=== PATIENT | female | born 1945 | race Caucasian/White ===

== ENCOUNTER 2016-09-21 10:55 | Emergency (ER) | payer MEDICARE, BC ==
[2016-09-21] MEDS ORDERED: Aspirin 81 MG Tab.Chew PO ONE (11:01)
[2016-09-21 11:29] VITALS: BP 124/72
[2016-09-21 11:29] LABS: CHLORIDE,CL 102 mEq/L (98-106); SODIUM,NA 140 mEq/L (136-145)
--- NOTE | 2016-09-21 13:38 | EDM.PDOC ---
ED HISTORY OF PRESENT ILLNESS - General Chief Complaint: Chest Pain Stated Complaint: CP Time Seen by Provider: 09/21/16 11:29 Source of Information: Reports: Patient History Limitations: Reports: No limitations - History of Present Illness INITIAL COMMENTS - FREE TEXT/NARRATIVE: Diandra is a 71 yo female who presents to the the ER via private vehicle, driven by a friend, with concerns of some chest discomfort. She states yesterday afternoon she started having bilateral neck and shoulder pain. States it really never worsened in regards to discomfort but last night around 10 oclock she felt some heaviness in her chest. She states she was able to get some rest in certain positions and didn't feel it was anything serious. States upone waking up this morning the pain was still present and after talking to her friend she thought she better come in to make sure it wasn't her heart. Timing/Duration: Reports: Improving Severity: mild Location, General: Reports: neck, chest Quality: Reports: Ache, Pressure, Sharp - Related Data Allergies/ADRs: Allergies Allergy/AdvReac Type Severity Reaction Status Date / Time mold Allergy Other Verified 09/21/16 11:06 pollen extracts Allergy Other Verified 09/21/16 11:06 dust Allergy Other Uncoded 09/21/16 11:06 pet dander Allergy Other Uncoded 09/21/16 11:06 Home Meds: Home Meds Aspirin [Ecotrin] 81 mg PO DAILY 12/07/15 [History] Cholecalciferol (Vitamin D3) [Vitamin D3] 5,000 unit PO DAILY 12/07/15 [History] Hydrochlorothiazide 25 mg PO DAILY 12/07/15 [History] Loratadine [Claritin] 10 mg PO DAILY 12/07/15 [History] Metoprolol Tartrate 25 mg PO BID 12/07/15 [History] Multivitamin [Multi-Vitamin Daily] 1 tab PO DAILY 12/07/15 [History] SUMAtriptan Succinate [Imitrex] 100 mg PO ASDIRECTED PRN 12/07/15 [History] Escitalopram [Lexapro] 20 mg PO DAILY 04/04/16 [History] Acetaminophen [Tylenol] 325 mg PO BID 09/21/16 [History] Biotin 1 mg PO DAILY 09/21/16 [History] Turmeric Root Extract [Turmeric] 1 cap PO DAILY 09/21/16 [History] Past Medical History Cardiovascular History: Reports: High cholesterol, Hypertension Gastrointestinal History: Reports: Bowel obstruction Other Gastrointestinal History: Patient had sigmoidectomy with temporary ostomy. Genitourinary History: Reports: Renal calculus Musculoskeletal History: Reports: Arthritis Other Musculoskeletal History: Carpal tunnel syndrome Neurological History: Reports: Migraines Psychiatric History: Reports: Depression - Past Surgical History Respiratory Surgical History: Reports: None GI Surgical History: Reports: Other (see below) Other GI Surgeries/Procedures: Sigmoidectomy/bowel resection with temporary ileostomy. Female Surgical History: Reports: Hysterectomy, Other (see below) Other Female Surgeries/Procedures: Hx of kidney stone. Musculoskeletal Surgical History: Reports: Arthroscopic knee Social & Family History - Family History Family Medical History: Noncontributory - Tobacco Use Smoking Status *Q: Former Smoker Years of Tobacco use: 20 Used Tobacco, but Quit: Yes Month Tobacco Last Used: quit 25 years ago Second Hand Smoke Exposure: No - Caffeine Use Caffeine Use: Reports: Coffee - Recreational Drug Use Recreational Drug Use: No - Living Situation & Occupation Living situation: Reports: single, other (lives alone 3 cats) Occupation: retired ED ROS GENERAL - Review of Systems Review Of Systems: See Below Constitutional: Reports: no symptoms. Denies: fever, chills HEENT: Reports: No symptoms Respiratory: Reports: Cough. Denies: Shortness of Breath, Wheezing, Pleuritic Chest Pain Cardiovascular: Reports: Chest pain. Denies: Blood pressure problem, Lightheadedness, Palpitations GI/Abdominal: Reports: No symptoms, Other (recent abdominal surgery this year for colectomy). Denies: Abdominal pain : Reports: no symptoms Musculoskeletal: Reports: neck pain, shoulder pain Skin: Reports: no symptoms Neurological: Reports: No Symptoms Psychiatric: Reports: No symptoms ED EXAM, GENERAL - Physical Exam Exam: See Below Exam Limited By: No limitations General Appearance: alert, no apparent distress Ears: normal external exam, normal canal, hearing grossly normal, normal TMs Nose: normal inspection, normal mucosa Throat/Mouth: Normal inspection, Normal lips, Normal teeth, Normal gums, Normal oropharynx, Normal voice, No airway compromise Head: atraumatic, normocephalic Respiratory/Chest: no respiratory distress, lungs clear, normal breath sounds, no accessory muscle use Cardiovascular: normal peripheral pulses, regular rate, rhythm, no edema, no murmur GI/Abdominal: normal bowel sounds, soft, no organomegaly, no distention, no mass , tender (right upper quadrant/epigastric), other (negative welch's sign) Back Exam: normal inspection Extremities: normal inspection Neurological: alert, oriented, normal cognition, no motor/sensory deficits Psychiatric: normal affect, normal mood Skin Exam: Warm, Dry, Intact, Normal color, No rash EKG INTERPRETATION EKG Date: 09/21/16 Rhythm: NSR Comparison: NA - no prior EKG Course - Vital Signs Last Recorded V/S: Last Vital Signs Temp 98.7 F 09/21/16 11:13 Pulse 71 09/21/16 11:13 Resp 20 09/21/16 11:13 BP 124/72 09/21/16 11:13 Pulse Ox 95 09/21/16 11:13 - Orders/Labs/Meds Orders: Active Orders 24 hr Category Date Time Status Cardiac Monitoring [RC] . DIRECTED Care 09/21/16 11:01 Active Chest 2V [CR] Stat Exams 09/21/16 11:01 Taken Gallbladder [Abdomen Ltd] [US] Stat Exams 09/21/16 11:45 Taken Labs: Laboratory Tests 09/21/16 09/21/16 09/21/16 Range/Units 11:10 11:10 11:10 WBC 10.7 H (5.0-10.0) 10^3/uL RBC 4.72 (4.00-5.50) 10^6/uL Hgb 12.6 (12.0-16.0) g/dL Hct 38.7 (37.0-47.0) % MCV 82.0 (82.0-94.0) fL MCH 26.7 L (27.0-32.0) pg MCHC 32.6 L (33.0-38.0) g/dL RDW Coeff of Stephanie 13.6 (11.0-15.0) % Plt Count 392 (150-400) 10^3/uL Neut % (Auto) 56.9 (35-85) % Lymph % (Auto) 24.9 (10-55) % [place] % (Auto) 15.9 (0-16) % Eos % (Auto) 1.9 (0-5) % Baso % (Auto) 0.4 (0-3) % Neut # (Auto) 6.11 (1.80-7.00) 10^3/uL Lymph # (Auto) 2.67 (1.00-4.80) 10^3/uL [place] # (Auto) 1.71 H (0.00-0.80) 10^3/uL Eos # (Auto) 0.20 (0.00-0.45) 10^3/uL Baso # (Auto) 0.04 10^3/uL PT 12.0 (9.7-12.3) SEC INR 1.11 (0.92-1.18) APTT 26.0 (20.0-45.0) SEC Sodium 140 (136-145) mEq/L Potassium 3.7 D (3.5-5.0) mEq/L Chloride 102 (98-106) mEq/L Carbon Dioxide 28 (21-32) mmol/L BUN 17 D (7-18) mg/dL Creatinine 1.3 H (0.6-1.0) mg/dL Est Cr Clr Drug Dosing 34.77 mL/min Estimated GFR (MDRD) 40 L (>=60) mL/min Glucose 100 H (75-99) mg/dL Calcium 9.2 (8.4-10.1) mg/dL Total Bilirubin (0.0-1.0) mg/dL Direct Bilirubin (0.0-0.3) mg/dL Indirect Bilirubin mg/dL AST (15-37) U/L ALT (12-78) U/L Alkaline Phosphatase (46-116) U/L Lactate Dehydrogenase 157 (100-190) U/L Creatine Kinase 31 (21-215) U/L Troponin I < 0.017 (0.00-0.06) ng/mL Total Protein (6.4-8.2) g/dL Albumin (3.4-5.0) g/dL Amylase (25-115) U/L 09/21/16 09/21/16 Range/Units 11:10 11:15 WBC (5.0-10.0) 10^3/uL RBC (4.00-5.50) 10^6/uL Hgb (12.0-16.0) g/dL Hct (37.0-47.0) % MCV (82.0-94.0) fL MCH (27.0-32.0) pg MCHC (33.0-38.0) g/dL RDW Coeff of Stephanie (11.0-15.0) % Plt Count (150-400) 10^3/uL Neut % (Auto) (35-85) % Lymph % (Auto) (10-55) % [place] % (Auto) (0-16) % Eos % (Auto) (0-5) % Baso % (Auto) (0-3) % Neut # (Auto) (1.80-7.00) 10^3/uL Lymph # (Auto) (1.00-4.80) 10^3/uL [place] # (Auto) (0.00-0.80) 10^3/uL Eos # (Auto) (0.00-0.45) 10^3/uL Baso # (Auto) 10^3/uL PT (9.7-12.3) SEC INR (0.92-1.18) APTT (20.0-45.0) SEC Sodium (136-145) mEq/L Potassium (3.5-5.0) mEq/L Chloride (98-106) mEq/L Carbon Dioxide (21-32) mmol/L BUN (7-18) mg/dL Creatinine (0.6-1.0) mg/dL Est Cr Clr Drug Dosing mL/min Estimated GFR (MDRD) (>=60) mL/min Glucose (75-99) mg/dL Calcium (8.4-10.1) mg/dL Total Bilirubin 0.5 (0.0-1.0) mg/dL Direct Bilirubin 0.1 (0.0-0.3) mg/dL Indirect Bilirubin 0.4 mg/dL AST 17 (15-37) U/L ALT 15 (12-78) U/L Alkaline Phosphatase 68 (46-116) U/L Lactate Dehydrogenase (100-190) U/L Creatine Kinase (21-215) U/L Troponin I (0.00-0.06) ng/mL Total Protein 7.5 (6.4-8.2) g/dL Albumin 3.5 (3.4-5.0) g/dL Amylase 39 (25-115) U/L Meds: Medications Discontinued Medications Generic Name Dose Route Start Last Admin Trade Name Freq PRN Reason Stop Dose Admin Aspirin 324 mg 09/21/16 11:01 09/21/16 11:09 Aspirin PO 09/21/16 11:02 324 mg ONETIME ONE Administration Departure - Departure Time of Disposition: 13:38 Disposition: Home, Self-Care 01 Clinical Impression: Atypical chest pain Instructions: Nonspecific Chest Pain, [id number] Referrals: Louann Stewart PROGRAM DIR [Primary Care Provider] - Forms: ED Department Discharge Additional Instructions: 1) Cardiac workup was negative today. 2) Ultrasound of right upper abdomen was negative as well, showed no sign of gallbladder etiology. 3) Recommend follow up with primary provider in 1 week for recheck. 4) If pain worsens or any concerns at all, recommend returning to ER. - Problem List & Annotations (1) Atypical chest pain SNOMED Code(s): 714896368 Code(s): R07.89 - OTHER CHEST PAIN Status: Acute Current Visit: Yes - Problem List Review Problem List Initiated/Reviewed/Updated: Yes - My Orders Last 24 Hours: My Active Orders 09/21/16 11:01 Cardiac Monitoring [RC] . DIRECTED Chest 2V [CR] Stat 09/21/16 11:45 Gallbladder [Abdomen Ltd] [US] Stat - Assessment/Plan Last 24 Hours: My Active Orders 09/21/16 11:01 Cardiac Monitoring [RC] . DIRECTED Chest 2V [CR] Stat 09/21/16 11:45 Gallbladder [Abdomen Ltd] [US] Stat Plan: Laboratory, EKG, chest x-ray and RUQ ultrsound was negative today. No definitive cause of chest discomfort. Recommend following up with primary provider in 1 week. Encourage returning to ER sooner if any concerns.
== END 2016-09-21 13:30 | disposition home or self-care (01) ==
LOC: CC.ED 10:55
DX: R07.89 Other chest pain (principal); E78.00 Pure hypercholesterolemia, unspecified; I10 Essential (primary) hypertension; M19.90 Unspecified osteoarthritis, unspecified site; F32.9 Major depressive disorder, single episode, unspecified; Z91.09 Other allergy status, other than to drugs and biological substances; Z79.899 Other long term (current) drug therapy; Z90.710 Acquired absence of both cervix and uterus; Z87.891 Personal history of nicotine dependence
CPT/HCPCS: 36415; 71020; 76705; 80048; 80076; 82150; 82550; 83615; 84484; 85025; 85610; 85730; 93005; 99285; A9270; 93010

== ENCOUNTER 2016-12-06 06:08 | Inpatient (IN) | payer MEDICARE, BC ==
[2016-12-06] MEDS ORDERED: Temazepam 15 MG Cap PO PRN (16:08)
[2016-12-06] MEDS ORDERED: Ondansetron 4 MG Tab.DIS PO PRN (16:08)
[2016-12-06] MEDS ORDERED: Ondansetron 4 MG/2 ML SDV IV PRN (16:08)
[2016-12-06] MEDS ORDERED: Sodium Chloride 0.9% 10 ML Syringe FLUSH PRN (16:08)
[2016-12-06] MEDS ORDERED: Lactated Ringers 1,000 ML IV SCH (16:15)
[2016-12-06 16:42] LABS: CHLORIDE,CL 91 mEq/L (98-106); SODIUM,NA 129 mEq/L (136-145)
[2016-12-06] MEDS ORDERED: Sodium Chloride 0.9% 1,000 ML IV SCH (17:30)
[2016-12-06] MEDS: Levofloxacin/Dextrose 5%-Water 500 MG in Premix Bag 1 BAG IV SCH (17:31)
[2016-12-06] MEDS: Acetaminophen 325 MG Tab PO PRN (18:47)
[2016-12-06] MEDS: Metoprolol Tartrate 25 MG Tab PO SCH (19:43)
[2016-12-06] MEDS ORDERED: Enoxaparin 80 MG/0.8 ML Syringe SUBCUT ONE (20:33)
[2016-12-06] MEDS ORDERED: Acetaminophen 325 MG Tab PO PRN (20:34)
[2016-12-06] MEDS ORDERED: Metoprolol Tartrate 25 MG Tab PO SCH (21:00)
[2016-12-06] MEDS ORDERED: Enoxaparin 40 MG/0.4 ML Syringe ONE (21:11)
[2016-12-06] MEDS ORDERED: Enoxaparin 30 MG/0.3 ML Syringe ONE (21:11)
[2016-12-06] MEDS: Sodium Chloride 0.9% 1,000 ML IV SCH (22:57)
[2016-12-07] MEDS: Acetaminophen 325 MG Tab PO PRN ×2 (01:43→15:41)
[2016-12-07] MEDS: Sodium Chloride 0.9% 1,000 ML IV SCH ×2 (06:34→14:36)
[2016-12-07] MEDS: Citalopram 10 MG Tab PO SCH (07:26)
[2016-12-07] MEDS: Hydrochlorothiazide 25 MG Tab PO SCH (07:26)
[2016-12-07] MEDS: Aspirin 81 MG Tab.EC PO SCH (07:26)
[2016-12-07] MEDS: Metoprolol Tartrate 25 MG Tab PO SCH ×2 (07:26→20:08)
[2016-12-07] MEDS ORDERED: Enoxaparin 80 MG/0.8 ML Syringe SUBCUT ONE (11:03)
[2016-12-07] MEDS: Pantoprazole 40 MG Vial IVPUSH SCH (11:09)
[2016-12-07] MEDS: Levofloxacin/Dextrose 5%-Water 500 MG in Premix Bag 1 BAG IV SCH (17:05)
--- NOTE | 2016-12-07 18:23 | PCM.PN ---
- General Info Date of Service: 12/07/16 Functional Status: Reports: tolerating diet. Denies: pain controlled (Does not have much pain with rest but increases left chest wall pain and shoulder pain with any movement or with deep inspiration), ambulating - Review of Systems General: Reports: Fever, Weakness, Fatigue, Malaise HEENT: Denies: ear pain, sinus congestion, sore throat Pulmonary: Reports: shortness of breath, pleuritic chest pain, cough. Denies: wheezing Cardiovascular: Reports: Chest Pain. Denies: Edema, Lightheadedness Gastrointestinal: Denies: Abdominal pain, Diarrhea, Nausea, Vomiting Genitourinary: Reports: no symptoms Musculoskeletal: Reports: shoulder pain Skin: Reports: no symptoms Neurological: Reports: No Symptoms Psychiatric: Reports: no symptoms - Patient Data Vitals - most recent: Last Vital Signs Temp 99.6 F 12/07/16 16:00 Pulse 109 H 12/07/16 16:00 Resp 20 12/07/16 16:00 BP 128/71 12/07/16 16:00 Pulse Ox 95 12/07/16 16:00 Weight - most recent: 195 lb 8 oz I&O - last 24 hours: Intake & Output 12/07/16 12/07/16 12/07/16 06:59 14:59 22:59 Intake Total 1252 3922 Output Total 150 Balance 1102 3922 Lab Results last 24 hrs: Laboratory Results - last 24 hr 12/06/16 12/07/16 12/07/16 Range/Units 20:20 07:00 07:05 WBC 15.6 H (5.0-10.0) 10^3/uL RBC 3.85 L (4.00-5.50) 10^6/uL Hgb 10.2 L (12.0-16.0) g/dL Hct 31.3 L (37.0-47.0) % MCV 81.3 L (82.0-94.0) fL MCH 26.5 L (27.0-32.0) pg MCHC 32.6 L (33.0-38.0) g/dL RDW Coeff of Stephanie 14.9 (11.0-15.0) % Plt Count 354 (150-400) 10^3/uL Add Manual Diff Yes Neutrophils % (Manual) 64 (35-85) % Band Neutrophils % 2 (0-5) % Lymphocytes % (Manual) 21 (21-55) % Monocytes % (Manual) 12 (2-12) % Eosinophils % (Manual) 1 (0-5) % Absolute Neutrophils 10.30 H (1.80-7.00) 10^3/uL Lymphocytes # (Manual) 3.28 (1.00-4.80) 10^3/uL Monocytes # (Manual) 1.87 H (0.00-0.80) 10^3/uL Eosinophils # (Manual) 0.16 (0.00-0.45) 10^3/uL Sodium 131 L (136-145) mEq/L Potassium 3.7 (3.5-5.0) mEq/L Chloride 96 L (98-106) mEq/L Carbon Dioxide 27 (21-32) mmol/L BUN 31 H (7-18) mg/dL Creatinine 1.6 H (0.6-1.0) mg/dL Est Cr Clr Drug Dosing 28.25 mL/min Estimated GFR (MDRD) 32 L (>=60) mL/min Glucose 114 H (75-99) mg/dL Calcium 8.6 (8.4-10.1) mg/dL C-Reactive Protein 28.3 H (0.2-0.8) mg/dL [id number] Pept 638 (0-1000) pg/nL Urine Color Dark yellow (YELLOW) Urine Appearance Slightly cloudy (CLEAR) Urine pH 5.5 (4.5-8.0) Ur Specific [place] 1.027 H (1.003-1.020) Urine Protein 100 H (NEGATIVE) mg/dL Urine Glucose (UA) Negative (NEGATIVE) mg/dL Urine Ketones Negative (NEGATIVE) mg/dL Urine Occult Blood Trace-intact H (NEGATIVE) Urine Nitrite Negative (NEGATIVE) Urine Bilirubin Small H (NEGATIVE) Urine Urobilinogen 0.2 (0.2-1.0) EU/dL Ur Leukocyte Esterase Small H (NEGATIVE) Urine RBC 5-10 H (0-5) /HPF Urine WBC 20-30 H (0-5) /HPF Ur Epithelial Cells Moderate H (NOT SEEN) /HPF Urine Bacteria Moderate H (NOT SEEN) /HPF Hyaline Casts Occasional H (NOT SEEN) /LPF Granular Casts Occasional H (NOT SEEN) /LPF Paras Results last 24 hrs: Microbiology 06/27/17 17:15 Aerobic Blood Culture - Preliminary Blood - Venous NO GROWTH AFTER 1 DAY Anaerobic Blood Culture - Preliminary NO GROWTH AFTER 1 DAY 12/06/16 17:10 Aerobic Blood Culture - Preliminary Blood - Venous - Lab Draw NO GROWTH AFTER 1 DAY Anaerobic Blood Culture - Preliminary NO GROWTH AFTER 1 DAY 12/06/16 20:20 Urine Culture - Preliminary Urine, Clean Catch Med Orders - Current: Current Medications Acetaminophen (Tylenol) 650 mg PO Q4H PRN PRN Reason: Pain (Mild 1-3)/fever Last Admin: 12/07/16 15:41 Dose: 650 mg Aspirin (Halfprin) 81 mg PO DAILY [facility] Last Admin: 12/07/16 07:26 Dose: 81 mg Citalopram Hydrobromide (Celexa) 40 mg PO DAILY [facility] Last Admin: 12/07/16 07:26 Dose: 40 mg Hydrochlorothiazide (Hydrochlorothiazide) 25 mg PO DAILY [facility] Last Admin: 12/07/16 07:26 Dose: 25 mg Levofloxacin/Dextrose 500 mg/ (Premix) 100 mls @ 100 mls/hr IV Q24H [facility] Last Admin: 12/07/16 17:05 Dose: 100 mls/hr Sodium Chloride (Normal Saline) 1,000 mls @ 125 mls/hr IV ASDIRECTED [facility] Last Admin: 12/07/16 14:36 Dose: 125 mls/hr Metoprolol Tartrate (Lopressor) 25 mg PO BID [facility] Last Admin: 12/07/16 07:26 Dose: 25 mg Ondansetron HCl (Zofran Odt) 4 mg PO Q4H PRN PRN Reason: nausea, able to take PO Ondansetron HCl (Zofran) 4 mg IV Q4H PRN PRN Reason: Nausea/Vomiting Pantoprazole Sodium (Protonix Iv) 40 mg IVPUSH Q24H [facility] Last Admin: 12/07/16 11:09 Dose: 40 mg Sodium Chloride (Saline Flush) 10 ml FLUSH ASDIRECTED PRN PRN Reason: Keep Vein Open Temazepam (Restoril) 15 mg PO BEDTIME PRN PRN Reason: Sleep Discontinued Medications Acetaminophen (Tylenol) 325 mg PO BID PRN PRN Reason: Pain Enoxaparin Sodium (Lovenox) 70 mg SUBCUT NOW ONE Stop: 12/06/16 20:34 Last Admin: 12/06/16 21:00 Dose: 70 mg Enoxaparin Sodium (Lovenox) Confirm Administered Dose 40 mg .ROUTE .STK-MED ONE Stop: 12/06/16 21:12 Last Admin: 12/06/16 21:31 Dose: Not Given Enoxaparin Sodium (Lovenox) Confirm Administered Dose 30 mg .ROUTE .STK-MED ONE Stop: 12/06/16 21:12 Last Admin: 12/06/16 21:31 Dose: Not Given Enoxaparin Sodium (Lovenox) 70 mg SUBCUT NOW ONE Stop: 12/07/16 11:04 Last Admin: 12/07/16 11:42 Dose: 70 mg Lactated Ringer's (Ringers, Lactated) 1,000 mls @ 125 mls/hr IV ASDIRECTED [facility] Last Admin: 12/06/16 17:04 Dose: 125 mls/hr Sodium Chloride (Normal Saline) 1,000 mls @ 250 mls/hr IV ASDIRECTED [facility] Stop: 12/06/16 21:29 Last Admin: 12/06/16 17:24 Dose: 250 mls/hr Metoprolol Tartrate (Lopressor) 25 mg PO Q12H [facility]EL[facility] - Exam General: alert, oriented HEENT: Mucous membr. moist/pink Neck: supple Lungs: Decreased breath sounds Cardiovascular: Regular Rate, Regular Rhythm, Tachycardia Abdomen: bowel sounds present, soft, no tenderness Extremities: no edema Skin: warm, dry Neurological: no new focal deficit - Problem List & Annotations (1) Pneumonia SNOMED Code(s): 731613877 Code(s): J18.9 - PNEUMONIA, UNSPECIFIED ORGANISM Status: Acute Priority: High Current Visit: Yes Qualifiers: Pneumonia type: due to unspecified organism Laterality: left Lung location: lower lobe of lung Qualified Code(s): J18.1 - Lobar pneumonia, unspecified organism - Problem List Review Problem List Initiated/Reviewed/Updated: Yes - My Orders Last 24 Hours: My Active Orders 12/06/16 20:00 Metoprolol Tartrate [Lopressor] 25 mg PO BID 12/06/16 20:20 CULTURE URINE [RM] Routine 12/06/16 21:30 Sodium Chloride 0.9% [Normal Saline] 1,000 ml IV ASDIRECTED 12/06/16 Dinner Regular Diet [DIET] 12/07/16 08:00 Aspirin [Halfprin] 81 mg PO DAILY Citalopram [Celexa] 40 mg PO DAILY Hydrochlorothiazide 25 mg PO DAILY 12/07/16 09:00 Pantoprazole [ProTONIX IV] 40 mg IVPUSH Q24H - Assessment Assessment:: Retrocardiac Pneumonia Renal Insufficiency - Plan Plan:: Patient admits to feeling better today. Is coughing more this am. States feel she has been inspiratory effort. Still having upper left chest wall pain. Sats are good. Has had temps up to 100.4. Unable to get CT scan of chest last evening due to inability to get IV, unable today as creatinine still at 1.6 despite IV fluids. Labs show some improvement of WBC to 15.6, CRP to 28. ProBNP is negative. Urine last evening did have moderate bacteria. Awaiting culture. Preliminary blood cultures are negative. Tolerating diet. Ultrasound of legs ordered to rule out DVT due to elevation of d-dimer and inability to yet get the CT. Will continue with IV fluids, sodium somewhat better at 131. Continue IV Levaquin. Given Lovenox 70 mg as awaiting results of ultrasound. Inappropriate for discharge due to acute illness.
[2016-12-08] MEDS: Sodium Chloride 0.9% 1,000 ML IV SCH ×2 (00:43→08:17)
[2016-12-08] MEDS: Acetaminophen 325 MG Tab PO PRN ×2 (02:21→10:19)
[2016-12-08] MEDS ORDERED: Enoxaparin 80 MG/0.8 ML Syringe SUBCUT SCH (08:00)
[2016-12-08] MEDS ORDERED: Potassium Chloride 10 MEQ Tab.ER PO SCH (08:00)
[2016-12-08] MEDS: Citalopram 10 MG Tab PO SCH (08:11)
[2016-12-08] MEDS: Hydrochlorothiazide 25 MG Tab PO SCH (08:11)
[2016-12-08] MEDS: Metoprolol Tartrate 25 MG Tab PO SCH (08:12)
[2016-12-08] MEDS: Pantoprazole 40 MG Vial IVPUSH SCH (08:12)
[2016-12-08] MEDS: Aspirin 81 MG Tab.EC PO SCH (08:12)
[2016-12-08] MEDS ORDERED: Sodium Chloride 0.45% with KCl 1,000 ML IV SCH (09:45)
[2016-12-08] MEDS: Albuterol/Ipratropium 3.0-0.5 MG/3 ML Neb Soln NEB SCH ×2 (10:07→14:00)
[2016-12-08] MEDS ORDERED: Iopamidol 755 Mg/ML 100 ML Bottle IVPUSH ONE (10:21)
[2016-12-08 11:42] VITALS: BP 123/56
[2016-12-08] MEDS ORDERED: Levofloxacin/Dextrose 5%-Water 250 MG in Premix Bag 1 BAG IV SCH (20:00)
--- NOTE | 2016-12-09 07:23 | PCM.DCSUM1 ---
Discharge Summary - Hospital Course Free Text/Narrative:: Patient admitted to hospital for weakness and left upper chest wall pain. Patient had noted over the last week or so this shoulder pain. Was seen by Louann Stewart, had xrays done without much concern. She has noted that since that time she has become more weak. Was worried about her kidneys as she has a history of renal failure. Friend present with her states she seems more short of breath and pale as well. Admitted for further work up. WBC was elevated at 21.9, CRP of 31.3. Chest xray showed atelectasis and LLL pneumonia. D-Dimer elevated. Started on IV fluids due to dehydration and Levaquin. Staff was unable to place IV in antecubital region so unable to get CT to rule out PE so was given dose of Lovenox 70 mg. Sodium low at 129 so NS bolus of fluids given. Blood cultures, sputum culture and urine ordered. Lactic acid normal. - Discharge Data Discharge Date: 12/08/16 Discharge Disposition: DC/Tfer to Acute Hospital 02 Condition: Undetermined - Discharge Diagnosis/Problem(s) (1) Pneumonia SNOMED Code(s): 701495438 ICD Code: J18.9 - PNEUMONIA, UNSPECIFIED ORGANISM Status: Acute Priority : High Qualifiers: Qualified Code(s): J18.1 - Lobar pneumonia, unspecified organism - Patient Summary/Data Complications: worsening respiratory status Hospital Course: Patient admitted with pneumonia and weakness. Was hyponatremic. Found to have bibasilar pneumonia. Patient tachycardic on admit with rate of 144 but sinus tach. No arrythmia. Unable to obtain CT scan on admit due to placement of IV. Day 1, creatinine still 1.6 so obtained bilateral venous ultrasounds which were negative. Given IV Levaquin. IV Normal saline. ON day 1, labs slowly improving, sodium of 131, WBC and CRP improving. ProBNP normal. She was feeling better on day 1, eating, more color and overall feeling stronger. Evening of day, patient expressed more shortness of breath, sats 88% on room air , improved with 2 liters of oxygen. Was able to sleep without incident. Low grade temps noted. Labs repeated in am, nebs added as patient more notably wheezy. Creatinine improved to 1.2, potassium 2.8, WBC and CRP better. Sodium within normal limits. Due to increased shortness of breath noted with even conversation, did proceed with CT scan of chest. Added 1/2 normal saline with potassium as ProBNP remained normal at 732. CT read did show bilateral pleural effusions and a pericardial effusion. Due to this, contacted hospitalist at [facility] with status. Agreed to accept the patient in transfer. Risks and benefits of transfer discussed with patient. Risks of transfer include worsening status while enroute, vehicular crash and even . Benefits to include more specialized respiratory/cardiology care in the event the effusions worsening or has change in respiratory status. She agrees the transfer versus benefit of ongoing care close to home but in the event of worsening status, lack of intensive care, ie. chest tubes, pericardiocentesis. - Discharge Plan Home Medications: Home Meds Aspirin [Ecotrin] 81 mg PO DAILY 12/07/15 [History] Cholecalciferol (Vitamin D3) [Vitamin D3] 5,000 unit PO DAILY 12/07/15 [History] Hydrochlorothiazide 25 mg PO DAILY 12/07/15 [History] Loratadine [Claritin] 10 mg PO DAILY 12/07/15 [History] Metoprolol Tartrate 25 mg PO BID 12/07/15 [History] Multivitamin [Multi-Vitamin Daily] 1 tab PO DAILY 12/07/15 [History] SUMAtriptan Succinate [Imitrex] 100 mg PO ASDIRECTED PRN 12/07/15 [History] Escitalopram [Lexapro] 20 mg PO DAILY 04/04/16 [History] Acetaminophen [Tylenol] 325 mg PO BID PRN 09/21/16 [History] Biotin 1 mg PO DAILY 09/21/16 [History] Turmeric Root Extract [Turmeric] 1 cap PO DAILY 09/21/16 [History] Melatonin 3 mg PO BEDTIME 12/06/16 [History] - Discharge Summary/Plan Comment DC Time >30 min.: Yes Discharge Summary/Plan Comment: Transfer to [facility] per ALS services. Time with consult with hospitalist, exam and explanation to patient and documentation 45 minutes. - General Info Date of Service: 12/08/16 Admission Dx/Problem (Free Text: Pneumonia Functional Status: Reports: tolerating diet. Denies: pain controlled, ambulating - Review of Systems General: Reports: Fever, Weakness, Fatigue HEENT: Denies: ear pain, sinus congestion, rhinitis Pulmonary: Reports: shortness of breath, cough, wheezing Cardiovascular: Reports: Chest Pain. Denies: Edema, Lightheadedness Gastrointestinal: Denies: Abdominal pain, Diarrhea, Nausea, Vomiting Genitourinary: Reports: no symptoms Musculoskeletal: Reports: no symptoms Skin: Reports: no symptoms Neurological: Reports: No Symptoms Psychiatric: Reports: no symptoms - Patient Data Vitals - Most Recent: Last Vital Signs Temp 97.3 F 12/08/16 11:41 Pulse 87 12/08/16 11:41 Resp 20 12/08/16 11:41 BP 123/56 L 12/08/16 11:41 Pulse Ox 95 12/08/16 11:41 Weight - Most Recent: 195 lb 8 oz Lab Results - Last 24 hrs: Laboratory Results - last 24 hr 12/08/16 12/08/16 12/08/16 Range/Units 08:45 08:45 08:45 WBC 12.5 H (5.0-10.0) 10^3/uL RBC 3.67 L (4.00-5.50) 10^6/uL Hgb 9.7 L (12.0-16.0) g/dL Hct 29.8 L (37.0-47.0) % MCV 81.2 L (82.0-94.0) fL MCH 26.4 L (27.0-32.0) pg MCHC 32.6 L (33.0-38.0) g/dL RDW Coeff of Stephanie 14.8 (11.0-15.0) % Plt Count 362 (150-400) 10^3/uL Add Manual Diff Yes Neutrophils % (Manual) 78 (35-85) % Band Neutrophils % 1 (0-5) % Lymphocytes % (Manual) 12 L (21-55) % Monocytes % (Manual) 6 (2-12) % Eosinophils % (Manual) 3 (0-5) % Absolute Neutrophils 9.88 H (1.80-7.00) 10^3/uL Lymphocytes # (Manual) 1.50 (1.00-4.80) 10^3/uL Monocytes # (Manual) 0.75 (0.00-0.80) 10^3/uL Eosinophils # (Manual) 0.38 (0.00-0.45) 10^3/uL Sodium 136 (136-145) mEq/L Potassium 2.8 L* D (3.5-5.0) mEq/L Chloride 100 (98-106) mEq/L Carbon Dioxide 25 (21-32) mmol/L BUN 20 H (7-18) mg/dL Creatinine 1.2 H (0.6-1.0) mg/dL Est Cr Clr Drug Dosing 37.67 mL/min Estimated GFR (MDRD) 44 L (>=60) mL/min Glucose 115 H (75-99) mg/dL Calcium 8.4 (8.4-10.1) mg/dL Magnesium (1.8-2.4) mg/dL Troponin I (0.00-0.06) ng/mL C-Reactive Protein 24.8 H (0.2-0.8) mg/dL [id number] Pept 732 (0-1000) pg/nL 12/08/16 12/08/16 Range/Units 08:45 08:45 WBC (5.0-10.0) 10^3/uL RBC (4.00-5.50) 10^6/uL Hgb (12.0-16.0) g/dL Hct (37.0-47.0) % MCV (82.0-94.0) fL MCH (27.0-32.0) pg MCHC (33.0-38.0) g/dL RDW Coeff of Stephanie (11.0-15.0) % Plt Count (150-400) 10^3/uL Add Manual Diff Neutrophils % (Manual) (35-85) % Band Neutrophils % (0-5) % Lymphocytes % (Manual) (21-55) % Monocytes % (Manual) (2-12) % Eosinophils % (Manual) (0-5) % Absolute Neutrophils (1.80-7.00) 10^3/uL Lymphocytes # (Manual) (1.00-4.80) 10^3/uL Monocytes # (Manual) (0.00-0.80) 10^3/uL Eosinophils # (Manual) (0.00-0.45) 10^3/uL Sodium (136-145) mEq/L Potassium (3.5-5.0) mEq/L Chloride (98-106) mEq/L Carbon Dioxide (21-32) mmol/L BUN (7-18) mg/dL Creatinine (0.6-1.0) mg/dL Est Cr Clr Drug Dosing mL/min Estimated GFR (MDRD) (>=60) mL/min Glucose (75-99) mg/dL Calcium (8.4-10.1) mg/dL Magnesium 1.8 (1.8-2.4) mg/dL Troponin I < 0.017 (0.00-0.06) ng/mL C-Reactive Protein (0.2-0.8) mg/dL [id number] Pept (0-1000) pg/nL MIRANDA Results - Last 24 hrs: Microbiology 12/06/16 17:15 Aerobic Blood Culture - Preliminary Blood - Venous NO GROWTH AFTER 2 DAYS Anaerobic Blood Culture - Preliminary NO GROWTH AFTER 2 DAYS 12/06/16 17:10 Aerobic Blood Culture - Preliminary Blood - Venous - Lab Draw NO GROWTH AFTER 2 DAYS Anaerobic Blood Culture - Preliminary NO GROWTH AFTER 2 DAYS 12/06/16 20:20 Urine Culture - Final Urine, Clean Catch Med Orders - Current: Current Medications Discontinued Medications Acetaminophen (Tylenol) 650 mg PO Q4H PRN PRN Reason: Pain (Mild 1-3)/fever Last Admin: 12/08/16 10:19 Dose: 650 mg Acetaminophen (Tylenol) 325 mg PO BID PRN PRN Reason: Pain Albuterol/Ipratropium (Duoneb 3.0-0.5 Mg/3 Ml) 3 ml NEB QIDRT [facility] Last Admin: 12/08/16 14:00 Dose: 3 ml Aspirin (Halfprin) 81 mg PO DAILY [facility] Last Admin: 12/08/16 08:12 Dose: 81 mg Citalopram Hydrobromide (Celexa) 40 mg PO DAILY [facility] Last Admin: 12/08/16 08:11 Dose: 40 mg Enoxaparin Sodium (Lovenox) 70 mg SUBCUT NOW ONE Stop: 12/06/16 20:34 Last Admin: 12/06/16 21:00 Dose: 70 mg Enoxaparin Sodium (Lovenox) Confirm Administered Dose 40 mg .ROUTE .STK-MED ONE Stop: 12/06/16 21:12 Last Admin: 12/06/16 21:31 Dose: Not Given Enoxaparin Sodium (Lovenox) Confirm Administered Dose 30 mg .ROUTE .STK-MED ONE Stop: 12/06/16 21:12 Last Admin: 12/06/16 21:31 Dose: Not Given Enoxaparin Sodium (Lovenox) 70 mg SUBCUT NOW ONE Stop: 12/07/16 11:04 Last Admin: 12/07/16 11:42 Dose: 70 mg Enoxaparin Sodium (Lovenox) 80 mg SUBCUT Q12H [facility] Last Admin: 12/08/16 10:09 Dose: 80 mg Hydrochlorothiazide (Hydrochlorothiazide) 25 mg PO DAILY [facility] Last Admin: 12/08/16 08:11 Dose: 25 mg Lactated Ringer's (Ringers, Lactated) 1,000 mls @ 125 mls/hr IV ASDIRECTED [facility] Last Admin: 12/06/16 17:04 Dose: 125 mls/hr Sodium Chloride (Normal Saline) 1,000 mls @ 250 mls/hr IV ASDIRECTED [facility] Stop: 12/06/16 21:29 Last Admin: 12/06/16 17:24 Dose: 250 mls/hr Levofloxacin/Dextrose 500 mg/ (Premix) 100 mls @ 100 mls/hr IV Q24H [facility] Last Admin: 12/07/16 17:05 Dose: 100 mls/hr Sodium Chloride (Normal Saline) 1,000 mls @ 125 mls/hr IV ASDIRECTED [facility] Last Admin: 12/08/16 08:17 Dose: 125 mls/hr Levofloxacin/Dextrose 250 mg/ (Premix) 50 mls @ 50 mls/hr IV Q24H [facility] Potassium Chloride/Sodium Chloride (1/2 Ns With 20 Meq Kcl) 1,000 mls @ 125 mls /hr IV ASDIRECTED [facility] Last Admin: 12/08/16 10:22 Dose: 125 mls/hr Iopamidol (Isovue-370 (76%)) 100 ml IVPUSH ONETIME ONE Stop: 12/08/16 10:22 Last Admin: 12/08/16 10:43 Dose: 100 ml Metoprolol Tartrate (Lopressor) 25 mg PO Q12H [facility] Metoprolol Tartrate (Lopressor) 25 mg PO BID [facility] Last Admin: 12/08/16 08:12 Dose: 25 mg Ondansetron HCl (Zofran Odt) 4 mg PO Q4H PRN PRN Reason: nausea, able to take PO Ondansetron HCl (Zofran) 4 mg IV Q4H PRN PRN Reason: Nausea/Vomiting Pantoprazole Sodium (Protonix Iv) 40 mg IVPUSH Q24H [facility] Last Admin: 12/08/16 08:12 Dose: 40 mg Pantoprazole Sodium (Protonix Iv) 40 mg IVPUSH Q24H [facility] Potassium Chloride (Klor-Con 10) 10 meq PO BIDMEALS [facility] Last Admin: 12/08/16 10:08 Dose: 10 meq Sodium Chloride (Saline Flush) 10 ml FLUSH ASDIRECTED PRN PRN Reason: Keep Vein Open Temazepam (Restoril) 15 mg PO BEDTIME PRN PRN Reason: Sleep - Exam Quality Assessment: Reports: supplemental oxygen General: Reports: alert, oriented, mild distress HEENT: Reports: Mucous membr. moist/pink Neck: Reports: supple Lungs: Reports: Decreased breath sounds, Wheezing Cardiovascular: Reports: Regular Rate, Regular Rhythm, Tachycardia Abdomen: Reports: bowel sounds present, soft, no tenderness Extremities: Reports: no edema Skin: Reports: warm, dry Psy/Mental Status: Reports: alert, normal affect, normal mood *Q Meaningful Use (DIS) - VTE *Q VTE Criteria *Q: - Stroke *Q Stroke Criteria *Q: - AMI *Q AMI Criteria *Q:
[2016-12-09] MEDS ORDERED: Pantoprazole 40 MG Vial IVPUSH SCH (08:00)
== END 2016-12-08 14:50 | DRG 194 ==
LOC: UNDOADMOB 06:08 → CC.MS 06:08 → UNDOADMOB 16:04 → CC.MS 16:08 → OBSVTOIN 12-07 09:09
PROVIDERS: ADMIT Physician Assistant Medical; ATTEND Family Medicine
DX: J18.9 Pneumonia, unspecified organism (principal); J18.1 Lobar pneumonia, unspecified organism; E87.1 Hypo-osmolality and hyponatremia; N17.9 Acute kidney failure, unspecified; Z79.82 Long term (current) use of aspirin; R79.1 Abnormal coagulation profile; M25.511 Pain in right shoulder; R06.02 Shortness of breath
CPT/HCPCS: 36415 ×2; 71020; 80048; 80053; 81001; 82550; 83605; 83735; 83880; 84484; 85025 ×2; 85379; 86140 ×2; 87040 ×2; 87086; 93005; 93010; 96361 ×2; 96365; 96372; 99220; A9270 ×7; G0378; J1956; J7030 ×3; J7120; 71275; C9113; G0365; J1650; J3480; Q9967